=== PATIENT | male | born 1980 | race Caucasian/White ===

== ENCOUNTER 2019-09-19 22:29 | Observation (INO) ==
[2019-09-19] MEDS ORDERED: Isovue-370 500 ML BOTTLE IVP ONE (22:42)
[2019-09-19 23:11] LABS: Hemoglobin 12.9 g/dL (12.9-16.9); Immature Granulocytes % 0.5 % (0-4); Monocytes % 6.2 %
[2019-09-19 23:13] LABS: Basophils % 0.3 %; Eosinophils # 0.3 K/mcL (0.0-0.6); Eosinophils % 2.9 %; Hematocrit 38.9 % (37.5-50.1); Immature Platelets 8.2 % (1.1-6.1); Lymphocytes # 1.9 K/mcL (0.6-4.6); Lymphocytes % 21.3 %; Mean Corpuscular HGB Conc 33.2 g/dL (31.6-35.5); Mean Corpuscular Hemoglobin 30.2 pg (28.0-33.3); Mean Corpuscular Volume 91.1 fL (83.0-100.0); Monocytes # 0.6 K/mcL (0.0-1.3); Neutrophils # 6.1 K/mcL (1.6-8.9); Platelet Count 171 K/mcL (140-400); Red Blood Count 4.27 M/mcL (4.19-5.50); Red Cell Distribution Width 12.2 % (11.5-14.5); Segmented Neutrophils % 68.8 %; White Blood Count 8.9 K/mcL (4.3-11.1)
[2019-09-19 23:38] LABS: BUN/Creatinine Ratio 10 (6-26); Blood Urea Nitrogen 7 mg/dL (6-20); Calcium 8.7 mg/dL (8.6-10.3); Carbon Dioxide 24 mEq/L (23-29); Chloride 93 mEq/L (98-107); Glucose 677 mg/dL (70-105); Osmolality,Calculated 292 (280-300); Sodium 126 mEq/L (136-145); eGFR For African Americans > 60 (> 60); eGFR For Non-African Americans > 60 (> 60)
[2019-09-20 00:12] LABS: VBG HCO3 27 mEq/L (21-27); VBG PCO2 45 mmHg (41-51); VBG PH 7.38 pH Units (7.32-7.42); VBG PO2 103 mmHg (25-50)
[2019-09-20] MEDS: 0.9 % Sodium Chloride 1,000 ML IVC SCH ×2 (00:14→01:40)
[2019-09-20 00:17] LABS: Bilirubin,Urine Negative (Negative); Blood,Urine Negative (Negative); Clarity,Urine Clear (Clear); Color,Urine Yellow (Yellow); Glucose,Urine (UA) >=1000 mg/dL (Normal); Ketones,Urine Negative (Negative); Leukocyte Esterase,Urine Negative (Negative); Nitrite,Urine Negative (Negative); Protein,Urine Negative (Neg-Trace); Specific Gravity,Urine > 1.030 (1.010-1.025); Urobilinogen,Urine Normal (Normal)
[2019-09-20] MEDS ORDERED: *HR* FentaNYL (PF) 100 MCG/2 ML VIAL IVP ONE (01:00)
[2019-09-20] MEDS ORDERED: Ketorolac 15 MG/ML VIAL IVP ONE (01:27)
[2019-09-20] MEDS ORDERED: Piperacillin/Tazobactam 3.375 GM in 0.9 % Sodium Chloride Mini Bag 100 ML IVPB ONE (01:39)
[2019-09-20] MEDS ORDERED: Insulin Regular, Human 100 UNIT/ML SQ ONE (01:53)
[2019-09-20] MEDS ORDERED: Naloxone 0.4 MG/ML INJ IVP PRN ×2 (03:04→13:56)
[2019-09-20] MEDS ORDERED: D5% in Water 1,000 ML IVC PRN ×2 (03:05→13:56)
[2019-09-20] MEDS ORDERED: *HR* Dextrose 50 % in Water (Syg) 50 ML SYRINGE IVP PRN ×2 (03:05→13:56)
[2019-09-20] MEDS ORDERED: Dextrose Gel 15 GM/37.5 ML TUBE PO PRN ×4 (03:05→13:56)
[2019-09-20] MEDS ORDERED: 0.9 % Sodium Chloride 1,000 ML IVC SCH (03:15)
[2019-09-20] MEDS ORDERED: Insulin DETEMIR 100 UNIT/ML X5UNITS SQ SCH ×2 (03:15→21:00)
[2019-09-20] MEDS: Insulin LISPRO 300 UNITS/3 ML VIAL SQ SCH ×4 (04:23→19:45)
[2019-09-20] MEDS ORDERED: Ondansetron ODT 4 MG TAB.RAPDIS PO PRN ×2 (04:24→13:56)
[2019-09-20] MEDS ORDERED: Ipratropium/Albuterol Neb 3 ML IH PRN ×2 (04:24→13:56)
[2019-09-20] MEDS ORDERED: *HR* Buprenorphine HCl 8 MG TAB.SUBL SL ONE (04:30)
[2019-09-20] MEDS ORDERED: Ketorolac 15 MG/ML VIAL IVP PRN ×2 (04:37→13:56)
[2019-09-20 05:23] LABS: Hematocrit 36.6 % (37.5-50.1); Hemoglobin 12.2 g/dL (12.9-16.9); Mean Corpuscular HGB Conc 33.3 g/dL (31.6-35.5); Mean Corpuscular Hemoglobin 30.4 pg (28.0-33.3); Mean Corpuscular Volume 91.3 fL (83.0-100.0); Mean Platelet Volume 10.3 fL (9.4-12.4); Platelet Count 193 K/mcL (140-400); Red Blood Count 4.01 M/mcL (4.19-5.50); Red Cell Distribution Width 12.2 % (11.5-14.5); White Blood Count 9.7 K/mcL (4.3-11.1)
[2019-09-20 05:44] LABS: BUN/Creatinine Ratio 11 (6-26); Blood Urea Nitrogen 6 mg/dL (6-20); Calcium 8.5 mg/dL (8.6-10.3); Carbon Dioxide 23 mEq/L (23-29); Chloride 104 mEq/L (98-107); Glucose 256 mg/dL (70-105); Osmolality,Calculated 284 (280-300); Potassium 3.5 mEq/L (3.5-5.1); Sodium 134 mEq/L (136-145); eGFR For African Americans > 60 (> 60); eGFR For Non-African Americans > 60 (> 60)
[2019-09-20] MEDS ORDERED: *HR* Heparin 5,000 UNIT/ML VIAL SQ SCH (06:00)
[2019-09-20] MEDS ORDERED: Piperacillin/Tazobactam 3.375 GM in 0.9 % Sodium Chloride Mini Bag 100 ML IVPB SCH (08:00)
[2019-09-20] MEDS ORDERED: Gabapentin 400 MG CAPSULE PO SCH (09:00)
[2019-09-20] MEDS ORDERED: Baclofen 10 MG TABLET PO SCH (09:00)
[2019-09-20] MEDS ORDERED: Famotidine 20 MG TABLET PO SCH (09:00)
[2019-09-20] MEDS ORDERED: Tiotropium 18 MCG inhalation IH SCH (10:00)
[2019-09-20] MEDS ORDERED: *HR* Propofol 200 MG/20 ML VIAL IVP ONE (10:41)
[2019-09-20] MEDS ORDERED: *HR* FentaNYL (PF) 100 MCG/2 ML VIAL ONE (10:41)
[2019-09-20] MEDS ORDERED: *HR* Midazolam HCl 2 MG/2 ML VIAL ONE (10:41)
[2019-09-20] MEDS ORDERED: Bupivacaine/EPI 1:200k 0.5%PF 10 ML VIAL ONE (10:50)
[2019-09-20] MEDS ORDERED: *HR* Meperidine 25 MG/ML SYRINGE IVP PRN ×2 (11:10→13:56)
[2019-09-20] MEDS ORDERED: *HR* OxyCODONE Immed Rel 5 MG TABLET PO PRN ×2 (11:10→13:56)
[2019-09-20] MEDS ORDERED: Ondansetron 4 MG/2 ML VIAL IVP ONE ×2 (11:10→13:56)
[2019-09-20] MEDS ORDERED: *HR* Promethazine 25 MG/ML VIAL IVP PRN ×2 (11:10→13:56)
[2019-09-20] MEDS ORDERED: Ethanol\\Acetic Acid\\Na Ace\\Ben 1,000 ML IRRIG.SOLN IR ONE (11:24)
[2019-09-20] MEDS ORDERED: *HR* HYDROcodone/Acet 5/325 mg TABLET PO PRN (12:00)
[2019-09-20] MEDS ORDERED: Ketorolac 30 MG/ML VIAL ONE (12:09)
[2019-09-20] MEDS: *HR* HYDROmorphone PF 0.5 MG/0.5 ML SYRINGE IVP PRN ×3 (12:39→13:00)
[2019-09-20] MEDS ORDERED: Ringers Solution, Lactated 1,000 ML ONE (13:02)
[2019-09-20] MEDS ORDERED: Ringers Solution, Lactated 1,000 ML IVC SCH (13:56)
[2019-09-20] MEDS ORDERED: Sennosides 8.6 MG TABLET PO PRN (13:56)
[2019-09-20] MEDS ORDERED: Ondansetron 4 MG/2 ML VIAL IVP PRN (13:56)
[2019-09-20] MEDS ORDERED: *HR* HYDROmorphone PF 0.5 MG/0.5 ML SYRINGE IVP PRN (13:56)
[2019-09-20] MEDS ORDERED: MOM Conc 10 ML UD.LIQ PO PRN (13:56)
[2019-09-20] MEDS: Gabapentin 400 MG CAPSULE PO SCH ×2 (16:28→19:42)
[2019-09-20] MEDS: *HR* HYDROcodone/Acet 5/325 mg TABLET PO PRN (16:30)
[2019-09-20] MEDS: Baclofen 10 MG TABLET PO SCH ×2 (16:31→19:45)
[2019-09-20] MEDS ORDERED: cloNIDine HCL 0.1 MG TABLET PO SCH ×2 (18:00)
[2019-09-20] MEDS: Piperacillin/Tazobactam 3.375 GM in 0.9 % Sodium Chloride Mini Bag 100 ML IVPB SCH (18:18)
[2019-09-20] MEDS: *HR* Heparin 5,000 UNIT/ML VIAL SQ SCH (18:19)
[2019-09-20] MEDS ORDERED: *HR* OxyCODONE Immed Rel 5 MG TABLET PO ONE (19:39)
[2019-09-20] MEDS: Famotidine 20 MG TABLET PO SCH (19:43)
[2019-09-21] MEDS: Insulin LISPRO 300 UNITS/3 ML VIAL SQ SCH ×4 (00:09→13:09)
[2019-09-21] MEDS: Piperacillin/Tazobactam 3.375 GM in 0.9 % Sodium Chloride Mini Bag 100 ML IVPB SCH ×2 (02:03→10:24)
[2019-09-21] MEDS: *HR* Heparin 5,000 UNIT/ML VIAL SQ SCH (05:10)
[2019-09-21 06:40] LABS: Hematocrit 33.8 % (37.5-50.1); Hemoglobin 11.2 g/dL (12.9-16.9); Mean Corpuscular HGB Conc 33.1 g/dL (31.6-35.5); Mean Corpuscular Hemoglobin 30.6 pg (28.0-33.3); Mean Corpuscular Volume 92.3 fL (83.0-100.0); Mean Platelet Volume 10.6 fL (9.4-12.4); Platelet Count 185 K/mcL (140-400); Red Blood Count 3.66 M/mcL (4.19-5.50); Red Cell Distribution Width 12.4 % (11.5-14.5); White Blood Count 7.3 K/mcL (4.3-11.1)
[2019-09-21 06:57] LABS: BUN/Creatinine Ratio 17 (6-26); Blood Urea Nitrogen 8 mg/dL (6-20); Calcium 8.3 mg/dL (8.6-10.3); Carbon Dioxide 24 mEq/L (23-29); Chloride 107 mEq/L (98-107); Glucose 106 mg/dL (70-105); Osmolality,Calculated 285 (280-300); Potassium 3.6 mEq/L (3.5-5.1); Sodium 138 mEq/L (136-145); eGFR For African Americans > 60 (> 60); eGFR For Non-African Americans > 60 (> 60)
[2019-09-21] MEDS: Baclofen 10 MG TABLET PO SCH (08:22)
[2019-09-21] MEDS: Gabapentin 400 MG CAPSULE PO SCH ×2 (08:23→13:08)
[2019-09-21] MEDS: Famotidine 20 MG TABLET PO SCH (08:24)
[2019-09-21] MEDS: *HR* HYDROcodone/Acet 5/325 mg TABLET PO PRN (08:38)
[2019-09-21] MEDS ORDERED: Tiotropium 18 MCG inhalation IH SCH (10:00)
[2019-09-21 11:46] VITALS: BP 134/81
[2019-09-21] MEDS ORDERED: Aminoglycoside Consult 1 EACH MC ONE (14:16)
== END 2019-09-21 14:17 | disposition home or self-care (01) ==
LOC: EMEROOARM 22:29 → 3NENU 22:29
PROVIDERS: ADMIT Student in an Organized Health Care Education/Training Program; ATTEND Student in an Organized Health Care Education/Training Program

== ENCOUNTER 2019-11-24 10:58 | Observation (INO) ==
[2019-11-24] MEDS ORDERED: Aspirin 81 MG TAB.CHEW PO ONE (11:11)
[2019-11-24] MEDS: Nitroglycerin 0.4 MG TAB.SUBL SL PRN ×2 (11:30→11:42)
[2019-11-24 11:41] LABS: Basophils # 0.1 K/mcL (0.0-0.2); Basophils % 0.5 %; Eosinophils # 0.2 K/mcL (0.0-0.6); Eosinophils % 1.4 %; Hemoglobin 13.9 g/dL (12.9-16.9); Immature Granulocytes % 0.4 % (0-4); Lymphocytes # 1.2 K/mcL (0.6-4.6); Lymphocytes % 10.4 %; Mean Corpuscular HGB Conc 33.1 g/dL (31.6-35.5); Mean Corpuscular Hemoglobin 30.3 pg (28.0-33.3); Mean Corpuscular Volume 91.5 fL (83.0-100.0); Mean Platelet Volume 9.7 fL (9.4-12.4); Monocytes # 0.6 K/mcL (0.0-1.3); Monocytes % 5.3 %; Neutrophils # 9.6 K/mcL (1.6-8.9); Platelet Count 236 K/mcL (140-400); Red Blood Count 4.59 M/mcL (4.19-5.50); Red Cell Distribution Width 12.2 % (11.5-14.5); White Blood Count 11.7 K/mcL (4.3-11.1)
[2019-11-24 11:46] LABS: INR 0.9; Prothrombin Time 10.7 Seconds (9.4-12.1)
[2019-11-24 11:49] LABS: Activated Partial Thrombo Time 36.5 Seconds (26.0-36.0)
[2019-11-24 12:02] LABS: BUN/Creatinine Ratio 14 (6-26); Blood Urea Nitrogen 8 mg/dL (6-20); Calcium 9.5 mg/dL (8.6-10.3); Carbon Dioxide 25 mEq/L (23-29); Chloride 105 mEq/L (98-107); Glucose 114 mg/dL (70-105); Osmolality,Calculated 287 (280-300); Potassium 3.6 mEq/L (3.5-5.1); Sodium 139 mEq/L (136-145); Troponin I < 0.03 ng/mL (< 0.04); eGFR For African Americans > 60 (> 60); eGFR For Non-African Americans > 60 (> 60)
[2019-11-24] MEDS ORDERED: Naloxone 0.4 MG/ML INJ IVP PRN (12:17)
[2019-11-24] MEDS ORDERED: cloNIDine HCL 0.1 MG TABLET PO PRN (12:17)
[2019-11-24] MEDS ORDERED: Baclofen 10 MG TABLET PO PRN (12:17)
[2019-11-24] MEDS ORDERED: Ipratropium/Albuterol Neb 3 ML IH PRN (12:17)
[2019-11-24] MEDS ORDERED: Metoprolol 100 MG TABLET PO PRN (12:21)
[2019-11-24] MEDS ORDERED: Isovue-370 500 ML BOTTLE IVP ONE (12:21)
[2019-11-24] MEDS ORDERED: Nitroglycerin 0.4 MG TAB.SUBL SL PRN ×2 (12:23→14:26)
[2019-11-24] MEDS ORDERED: IVABRADINE HCL 7.5 MG TABLET PO ONE (12:40)
[2019-11-24] MEDS ORDERED: *HR* Metoprolol 5 MG/5 ML VIAL IVP PRN (13:07)
[2019-11-24] MEDS ORDERED: Acetaminophen 325 MG TABLET PO PRN (13:08)
[2019-11-24] MEDS: 0.9 % Sodium Chloride 1,000 ML IVC SCH (13:13)
[2019-11-24] MEDS ORDERED: D5% in Water 1,000 ML IVC PRN (14:23)
[2019-11-24] MEDS ORDERED: *HR* Dextrose 50 % in Water (Vial) 50 ML VIAL IVP PRN (14:23)
[2019-11-24] MEDS ORDERED: Dextrose Gel 15 GM/37.5 ML TUBE PO PRN ×2 (14:23)
[2019-11-24] MEDS ORDERED: Perflutren Lipid Microsphere 1.3 ML in 0.9 % Sodium Chloride 8.7 ML IVP ONE (14:27)
[2019-11-24] MEDS ORDERED: Nicotine 21 MG PATCH.TD24 TD PRN (14:42)
[2019-11-24] MEDS: Insulin LISPRO 300 UNITS/3 ML VIAL SQ SCH ×2 (16:10→16:11)
[2019-11-24] MEDS: *HR* Heparin 5,000 UNIT/ML VIAL SQ SCH (16:15)
[2019-11-24] MEDS: Gabapentin 400 MG CAPSULE PO SCH ×3 (16:15→20:41)
[2019-11-24] MEDS ORDERED: Insulin DETEMIR 100 UNIT/ML X5UNITS SQ SCH (18:00)
[2019-11-24] MEDS: BUPRENORPHIN NALOXONE SL SCH (20:42)
[2019-11-24] MEDS ORDERED: Insulin LISPRO 300 UNITS/3 ML VIAL SQ SCH (21:00)
[2019-11-25 00:44] LABS: Bilirubin,Urine Negative (Negative); Blood,Urine Negative (Negative); Clarity,Urine Clear (Clear); Color,Urine Light-Yellow (Yellow); Glucose,Urine (UA) Normal (Normal); Ketones,Urine Trace mg/dL (Negative); Leukocyte Esterase,Urine Negative (Negative); Nitrite,Urine Negative (Negative); PH,Urine 7.5 pH Units (5.0-8.0); Protein,Urine Trace mg/dL (Neg-Trace); Specific Gravity,Urine > 1.030 (1.010-1.025)
[2019-11-25] MEDS: *HR* Heparin 5,000 UNIT/ML VIAL SQ SCH (05:09)
[2019-11-25] MEDS ORDERED: Regadenoson 0.4 MG/5 ML SYRINGE IVP ONE (06:24)
[2019-11-25 06:40] LABS: Basophils % 0.6 %; Eosinophils # 0.2 K/mcL (0.0-0.6); Eosinophils % 2.7 %; Hemoglobin 13.6 g/dL (12.9-16.9); Immature Granulocytes % 0.2 % (0-4); Lymphocytes # 2.2 K/mcL (0.6-4.6); Lymphocytes % 35.2 %; Mean Corpuscular HGB Conc 33.2 g/dL (31.6-35.5); Mean Corpuscular Hemoglobin 30.6 pg (28.0-33.3); Mean Corpuscular Volume 92.1 fL (83.0-100.0); Mean Platelet Volume 10.3 fL (9.4-12.4); Monocytes # 0.4 K/mcL (0.0-1.3); Monocytes % 6.2 %; Neutrophils # 3.5 K/mcL (1.6-8.9); Platelet Count 225 K/mcL (140-400); Red Blood Count 4.45 M/mcL (4.19-5.50); Red Cell Distribution Width 12.5 % (11.5-14.5); Segmented Neutrophils % 55.1 %; White Blood Count 6.3 K/mcL (4.3-11.1)
[2019-11-25 07:13] LABS: BUN/Creatinine Ratio 17 (6-26); Blood Urea Nitrogen 9 mg/dL (6-20); Calcium 9.3 mg/dL (8.6-10.3); Carbon Dioxide 27 mEq/L (23-29); Chloride 108 mEq/L (98-107); Chol/HDL Ratio 5.5 (0-4.9); Cholesterol 177 mg/dL (< 200); Glucose 75 mg/dL (70-105); HDL Cholesterol 32 mg/dL (40-59); LDL Cholesterol,Calculated 126 mg/dL (< 100); Magnesium 1.9 mg/dL (1.6-2.6); Osmolality,Calculated 289 (280-300); Phosphorous 4.4 mg/dL (2.7-4.5); Potassium 3.6 mEq/L (3.5-5.1); Sodium 141 mEq/L (136-145); Triglycerides 95 mg/dL (< 150); eGFR For African Americans > 60 (> 60); eGFR For Non-African Americans > 60 (> 60)
[2019-11-25] MEDS ORDERED: Aspirin 81 MG TAB.CHEW PO SCH (09:00)
[2019-11-25] MEDS ORDERED: Famotidine 20 MG TABLET PO SCH (09:00)
[2019-11-25] MEDS: Insulin LISPRO 300 UNITS/3 ML VIAL SQ SCH ×2 (09:21→12:30)
[2019-11-25] MEDS: BUPRENORPHIN NALOXONE SL SCH (09:22)
[2019-11-25] MEDS: Gabapentin 400 MG CAPSULE PO SCH ×2 (09:29→12:34)
[2019-11-25] MEDS ORDERED: Tiotropium 18 MCG inhalation IH SCH (10:00)
[2019-11-25 11:16] VITALS: BP 136/81
[2019-11-25] MEDS: 0.9 % Sodium Chloride 1,000 ML IVC SCH (12:30)
== END 2019-11-25 15:55 | disposition home or self-care (01) ==
LOC: EMEROOARM 10:58 → 3BNU 10:58 → SUATTDRO 12:17 → 3BNU 12:46
PROVIDERS: ADMIT Internal Medicine; ATTEND Internal Medicine

== ENCOUNTER 2020-02-16 11:04 | Observation (INO) ==
[2020-02-16 14:50] VITALS: BP 131/74
[2020-02-16 15:42] LABS: Adenovirus Not Detected (Not Detect); Bordetella Pertussis Not Detected (Not Detect); Chlamydophila pneumoniae Not Detected (Not Detect); Coronavirus 229E Not Detected (Not Detect); Coronavirus HKU1 Not Detected (Not Detect); Coronavirus NL63 Not Detected (Not Detect); Coronavirus OC43 Not Detected (Not Detect); Human Metapneumovirus Not Detected (Not Detect); Human Rhinovirus/Enterovirus DETECTED (Not Detect); Influenza A Subtype 2009 H1 Not Detected (Not Detect); Influenza B Not Detected (Not Detect); Mycoplasma pneumoniae Not Detected (Not Detect); Parainfluenza Virus 1 Not Detected (Not Detect); Parainfluenza Virus 2 Not Detected (Not Detect); Parainfluenza Virus 3 Not Detected (Not Detect); Parainfluenza Virus 4 Not Detected (Not Detect); Respiratory Syncytial Virus Not Detected (Not Detect); SARS-CoV-2 Not Detected (Not Detect)
[2020-02-16] MEDS ORDERED: Ondansetron 4 MG/2 ML VIAL IVP STA (16:40)
[2020-02-16 17:37] LABS: Basophils % 0.2 %; Hematocrit 42.8 % (37.5-50.1); Hemoglobin 14.4 g/dL (12.9-16.9); Immature Granulocytes % 0.6 % (0-4); Lymphocytes # 0.8 K/mcL (0.6-4.6); Lymphocytes % 5.3 %; Mean Corpuscular HGB Conc 33.6 g/dL (31.6-35.5); Mean Corpuscular Hemoglobin 30.3 pg (28.0-33.3); Mean Corpuscular Volume 90.1 fL (83.0-100.0); Mean Platelet Volume 9.6 fL (9.4-12.4); Monocytes # 0.7 K/mcL (0.0-1.3); Monocytes % 4.2 %; Neutrophils # 13.8 K/mcL (1.6-8.9); Platelet Count 249 K/mcL (140-400); Red Blood Count 4.75 M/mcL (4.19-5.50); Red Cell Distribution Width 11.7 % (11.5-14.5); Segmented Neutrophils % 89.7 %; White Blood Count 15.4 K/mcL (4.3-11.1)
[2020-02-16] MEDS ORDERED: Ipratropium/Albuterol Neb 3 ML IH PRN (17:46)
[2020-02-16] MEDS ORDERED: Baclofen 10 MG TABLET PO PRN (17:46)
[2020-02-16] MEDS ORDERED: cloNIDine HCL 0.1 MG TABLET PO PRN (17:46)
[2020-02-16 17:52] LABS: Alanine Aminotransferase 8 Units/L (7-52); Albumin 4.3 g/dL (3.5-5.7); Albumin/Globulin Ratio 1.3 (1.1-2.2); Alkaline Phosphatase 88 Units/L (34-104); Aspartate Amino Transferase 9 Units/L (13-39); BUN/Creatinine Ratio 19 (6-26); Bilirubin,Direct 0.2 mg/dL (0.0-0.2); Bilirubin,Indirect 1.1 mg/dL (0.0-1.0); Bilirubin,Total 1.3 mg/dL (0.3-1.0); Blood Urea Nitrogen 10 mg/dL (6-20); C-Reactive Protein 188 mg/L (Less than 10); Calcium 9.5 mg/dL (8.6-10.3); Carbon Dioxide 20 mEq/L (23-29); Chloride 101 mEq/L (98-107); Globulin 3.4 g/dL (2.4-3.5); Glucose 275 mg/dL (70-105); Osmolality,Calculated 285 (280-300); Potassium 3.9 mEq/L (3.5-5.1); Sodium 133 mEq/L (136-145); Total Protein 7.7 g/dL (6.4-8.9); Troponin I < 0.03 ng/mL (< 0.04); eGFR For African Americans > 60 (> 60); eGFR For Non-African Americans > 60 (> 60)
[2020-02-16] MEDS ORDERED: Tiotropium 18 MCG inhalation IH SCH (18:00)
[2020-02-16] MEDS ORDERED: Famotidine 20 MG TABLET PO SCH (18:00)
[2020-02-16] MEDS ORDERED: D5% in Water 1,000 ML IVC PRN (18:07)
[2020-02-16] MEDS ORDERED: Dextrose Gel 15 GM/37.5 ML TUBE PO PRN ×2 (18:07)
[2020-02-16] MEDS ORDERED: *HR* Dextrose 50 % in Water (Vial) 50 ML VIAL IVP PRN (18:07)
[2020-02-16] MEDS ORDERED: 0.9 % Sodium Chloride 1,000 ML IVC SCH (19:00)
[2020-02-16] MEDS ORDERED: predniSONE 20 MG TABLET PO SCH (19:30)
[2020-02-16] MEDS ORDERED: Gabapentin 400 MG CAPSULE PO SCH (21:00)
[2020-02-16] MEDS ORDERED: NALOXONE HCL SL SCH (21:00)
[2020-02-16] MEDS ORDERED: BUPRENORPHINE HCL SL SCH (21:00)
[2020-02-16] MEDS ORDERED: Ipratropium/Albuterol Neb 3 ML IH SCH (22:00)
[2020-02-17] MEDS ORDERED: Insulin LISPRO 300 UNITS/3 ML VIAL SQ SCH
[2020-02-17] MEDS ORDERED: Piperacillin/Tazobactam 3.375 GM in 0.9 % Sodium Chloride Mini Bag 100 ML IVPB SCH (06:00)
== END 2020-02-16 19:58 | disposition left against medical advice (07) ==
LOC: CDU → 3ANU 15:46
PROVIDERS: ADMIT Pharmacist; ATTEND Pharmacist